=== PATIENT | female | born 1940 | race Caucasian/White ===

== ENCOUNTER 2022-03-03 11:00 | Outpatient (RCR) | payer MEDICARE, OTHER, SELFPAY | END 2022-03-09 15:18 | disposition home or self-care (01) | LOC: HO.PT 11:00 | PROVIDERS: PCP Internal Medicine; Visit Provider Colon & Rectal Surgery | DX: R15.1 Fecal smearing (principal) | CPT/HCPCS: 97112; 97140; 97161 ==

== ENCOUNTER 2023-04-21 13:00 | Inpatient (IN) | payer MEDICARE, OTHER, SELFPAY ==
--- NOTE | ~2023-04-21 | XR_ITS ---
EXAMINATION: XR CHEST CLINICAL INFORMATION: None provided. COMPARISON: None available. TECHNIQUE: Frontal view of the chest was obtained. FINDINGS: No significant abnormality is noted involving the heart, lungs, mediastinum, bony thorax or soft tissues. There is some minimal bibasilar atelectasis. Degenerative changes are seen in the spine. XR/XR chest 1V IMPRESSION: No acute intrathoracic disease.
--- NOTE | 2023-04-21 13:10 | ECG_ITS ---
Test Reason : SHORT OF BREATHE Blood Pressure : / mmHG Vent. Rate : 072 BPM Atrial Rate : 072 BPM P-R Int : 152 ms QRS Dur : 080 ms QT Int : 386 ms P-R-T Axes : 012 -10 062 degrees QTc Int : 422 ms Normal sinus rhythm Normal ECG No previous ECGs available Referred By: Cami Infante Electronically Signed By:ANDREA CRYSTAL MD
[2023-04-21 13:11] VITALS: BP 140/78; BP 150/74; PULSE 84; PULSE 90; RESP 20; TEMP 37.1; O2SAT 97; O2SAT 98; BMI 29.0
--- NOTE | 2023-04-21 13:11 | ED_ITS ---
HPI - SOB/Dyspnea General Chief Complaint: Upper Respiratory Symptoms Stated Complaint: SOB,RECENT COVID,DUONEB GIVEN PER EMS Time Seen by Provider: 04/21/23 13:04 Source: patient and EMS Mode of arrival: EMS Limitations: no limitations History of Present Illness HPI Narrative: Patient comes to the emergency room complaining of shortness of breath. Patient was out shopping at the mall, patient had sudden onset of shortness of breath. Patient states that she does not have any lung issues, no asthma/COPD. Ambulance was called . On their arrival, they noticed that patient had bilateral wheezing, so EMS gave the patient 1 dose of DuoNeb. Patient states that she started feeling well afterwards. On arrival to the ED, patient was saturating 96% on room air. Patient denies chest pain or dizziness. Patient states that 3 weeks ago she tested positive for COVID and since then she has had a dry cough, no fever chills or difficulty breathing. Related Data Allergies Allergy/AdvReac Type Severity Reaction Status Date / Time [id number] Reductase Allergy Mild rash Verified 04/21/23 13:10 Inhibitor Review of Systems 2 Review of Systems: Constitutional : No Weight loss, No Fever, No Chills, No Night Sweats, No Fatigue, No Malaise ENT/Mouth : No Hearing loss, No Ear Pain, No Nasal Congestion, No Sinus Pain, No Hoarseness, No sore throat, No Rhinorrhea, No Swallowing Difficulty Eyes: No Eye Pain, No Swelling, No Redness, No Foreign Body, No Discharge, No Vision Changes Cardiovascular : No Chest Pain, No SOB, No Dyspnea on Exertion, No Orthopnea, No Edema, No Palpitations Respiratory : Dry cough for 3+ weeks after COVID, shortness of breath today improving with DuoNeb Gastrointestinal : No Nausea, No Vomiting, No Diarrhea, No Constipation, No abdominal Pain, No Hematochezia, No Melena Genitourinary : no irregular bleeding, No Dysuria, No Urinary Frequency, No Hematuria, No Urinary Incontinence, No Urgency, No Flank Pain, No Urinary Flow Changes, No Hesitancy Musculoskeletal : No joint pain, No Myalgias, No Joint Swelling Skin : No Skin Lesions, No rash Neuro : No Weakness, No Numbness, No Paresthesias, No Loss of Consciousness, No Dizziness, No Headache Psych : No Anxiety/Panic, No Depression, No SI/HI/AH/VH, No Social Issues, Heme/Lymph: No Bruising, No Bleeding,No Lymphadenopathy Endocrine : No Polyuria, No Polydipsia, No Temperature Intolerance [facility] Past Medical History Medical History Non-STEMI (non-ST elevated myocardial infarction) Hyperlipidemia Hypertension Social History Social History Advance Directives: No Advance Directives Information Provided: Yes Physical Exam 2 Vital Signs: Vital Signs: Last Vital Signs Temp 98.7 F 04/21/23 13:11 Pulse 71 04/21/23 13:32 Resp 15 04/21/23 13:32 BP 138/63 04/21/23 13:32 Pulse Ox 97 04/21/23 13:11 O2 Del Method Room Air 04/21/23 13:32 BMI result Body Mass Index 29.0 Const: Other: Appearance: Alert. Oriented X3. No acute distress. Eyes: Pupils equal, round and reactive to light. ENT: Pharynx normal. Neck: Normal inspection. Neck supple. No lymph nodes noted. No crepitus CVS: Normal heart rate and rhythm. Pulses normal. Normal S1 and S2 Respiratory: No respiratory distress. No wheezing, bilateral friction rub with inspiration Abdomen: Soft and nontender. No rigidity. No distention. Skin: Skin warm and dry. Normal skin color. Normal skin turgor. Extremities: No lower extremity edema. No Lacerations. No Rash Neuro: Oriented X 3. No motor deficit. No sensory deficit. Moving all extremities. No slurred speech. CN 2 through 12 grossly intact Psych: calm, cooperative, normal affect Course Course Course Narrative: -patient's vitals stable, oxygen saturation 97% on room air -patient's labs and imaging pending Medical Decision Making Medical Decision Making MDM Narrative: -my interpretation of labs: White blood cell count 12.7, likely reactive leukocytosis. Normal blood gases, normal chemistry, BNP 122 with no signs of edema. Serology was positive for COVID, patient has had COVID for 2 weeks. -my interpretation of chest x-ray, no pneumonia -I discussed with the patient and her family that she has been coughing for 3 weeks, likely having bronchitis. It is possible that she was in fact wheezing and the albuterol that she was given in the ambulance make her feel back to baseline. At this time, patient states that she feels completely normal. No chest pain or shortness of breath, no wheezing. Discharged with albuterol p.r.n. wheezing. -patient was walked around the emergency room, patient's oxygen saturation dropped to 80%, patient started wheezing again -patient receiving Decadron, magnesium and another breathing treatment. Discussed with the patient that unfortunately we cannot safely discharge her, patient and family agree with plan, she will be admitted. -discussed the patient with Dr. Olivier from the medicine team, patient being admitted Differential Diagnosis Differential Diagnoses: The differential diagnosis associated with the presentation includes (Asthma, bronchitis, pneumonia, COVID, influenza, RSV) Admission/Observation Consideration of admission/observation: Escalation of care including admission/observation considered Consult Healthcare Provider Management of the patient was discussed with: Hospitalist Lab Data MDM Lab Attestation statement: I reviewed the patient's lab results. 04/21/23 13:59 04/21/23 13:59 Labs: Lab Results 04/21/23 04/21/23 Range/Units 13:59 14:05 WBC 12.7 H (4.8-10.8) X10*3/uL RBC 4.17 L (4.20-5.50) X10*6/uL Hgb 12.9 (12.0-16.0) g/dl Hct 38.0 (37.0-47.0) % MCV 91.1 (80.0-98.0) fL MCH 30.9 (27.0-33.0) pg MCHC 33.9 (31.0-35.0) g/dl RDW 13.4 (11.0-16.0) % Plt Count 252 (160-400) X10*3/uL MPV 9.9 (9.4-12.3) fL Immature Gran % (Auto) 0.3 (0.0-0.4) % Neut % (Auto) 85.8 H (45-73) % Lymph % (Auto) 5.7 L (20-40) % [place] % (Auto) 4.3 (2-11) % Eos % (Auto) 3.3 (0-4) % Baso % (Auto) 0.6 (0-2) % Lymph # (Auto) 0.7 L (1.2-4.9) X10*3/uL [place] # (Auto) 0.6 (0.1-1.2) X10*3/uL Eos # (Auto) 0.4 (0.0-0.4) X10*3/uL Baso # (Auto) 0.1 (0.0-0.2) X10*3/uL Abs Immat Gran (auto) 0.04 H (0.00-0.03) X10*3/uL Absolute Neuts (auto) 10.9 H (2.0-8.3) x10*3/uL Absolute Nucleated RBC 0.000 (0.0-0.012) X10*3/uL Nucleated RBC % (auto) 0.0 (0.0-0.2) /100WBC PT 11.0 L (11.1-13.3) SEC INR 0.9 (0.9-1.1) VBG pH 7.46 H (7.32-7.43) VBG pCO2 36 mmHg VBG pO2 44 mmHg VBG HCO3 25 (22-26) mmol/L VBG O2 Saturation 74.0 % VBG Base Excess 2.4 mmol/L Sodium 135 (135-145) mmol/L Potassium 4.1 (3.3-5.1) mmol/L Chloride 102 (96-108) mmol/L Carbon Dioxide 24 (22-29) mmol/L Anion Gap 13 (12-20) BUN 21 H (9-16) mg/dL Creatinine 0.68 (0.5-1.4) mg/dL Estim Creat Clear Calc 68.7 Estimated GFR > 60 Random Glucose 103 (60-115) mg/dL Lactic Acid 1.1 (0.5-2.0) mmol/L Calcium 9.6 (8.4-10.2) mg/dL Total Bilirubin 0.4 (0.0-1.0) mg/dL Direct Bilirubin 0.1 (0.0-0.5) mg/dL AST 29 (5-31) U/L ALT 16 (0-31) U/L Alkaline Phosphatase 81 (39-117) U/L Troponin I High Sens 3.2 (<3.5-17.0) ng/L B-Natriuretic Peptide 122 H (<100) pg/mL Total Protein 7.7 (6.5-8.0) g/dL Albumin 4.2 (3.5-5.0) g/dL Influenza Type A (PCR) NEGATIVE (Negative) Influenza Type B (PCR) NEGATIVE (Negative) RSV RNA Qual (PCR) NEGATIVE (Negative) SARS-CoV-2 RNA (RT-PCR) POSITIVE A (Negative) Independent Interpretation I performed an independent interpretation of an: EKG (My interpretation of EKG: Normal sinus rhythm, heart rate 72, no ST segment depression or elevation, no T- wave inversion, QTC 422) and Plain X-Ray Radiology Impression Discussion of test interpretation with radiology: I have reviewed the radiologist's reading. Radiologist Impression: FINDINGS: No significant abnormality is noted involving the heart, lungs, mediastinum, bony thorax or soft tissues. There is some minimal bibasilar atelectasis. Degenerative changes are seen in the spine. XR/XR chest 1V IMPRESSION: No acute intrathoracic disease. Independent Historian Clinical information obtained from an independent historian. History obtained from or confirmed by: Other (Patient's son) Critical Care Time Critical Care Time Critical Care Time: Yes Total Critical Care Time: 60 Attestation: I have personally provided critical care time. Time includes review of lab data, radiology results, discussion with consultants, and monitoring for potential decompensation. Intervention performed as documented. Discharge Plan Discharge Clinical Impression: COVID-19 Patient Disposition: Admitted As Inpatient
--- NOTE | 2023-04-21 13:21 | PC.NURSE ---
[place] [facility] [place] with complaints of shortness of breath while out walking her dog. Dx with COVID at the end of March. Took a full course of Paxlovid. States that she is fully vaccinated for RSV/COVID/Flu. VSS. RR even and unlabored bilaterally on RA. Plan for EKG, labs, CXR.
[2023-04-21 13:32] VITALS: BP 138/63; PULSE 71; RESP 15
[2023-04-21 14:07] LABS: MANUAL DIFF FLAG NO
[2023-04-21 14:10] LABS: Venous Blood Gas Refer to POC result
[2023-04-21 14:11] LABS: VBG Base Excess 2.4 mmol/L; VBG HCO3 25 mmol/L (22-26); VBG pCO2 36 mmHg; VBG pH 7.46 (7.32-7.43); VBG pO2 44 mmHg
[2023-04-21 14:14] LABS: Basophils Absolute Auto 0.1 X10*3/uL (0.0-0.2); Basophils Percent Auto 0.6 % (0-2); Eosinophils Absolute Auto 0.4 X10*3/uL (0.0-0.4); Eosinophils Percent Auto 3.3 % (0-4); Hemoglobin 12.9 g/dl (12.0-16.0); Imm Gran Abs Auto 0.04 X10*3/uL (0.00-0.03); Imm Gran Pct Auto 0.3 % (0.0-0.4); Lymphocytes Absolute Auto 0.7 X10*3/uL (1.2-4.9); Lymphocytes Percent Auto 5.7 % (20-40); Mean Corpuscular HGB Conc 33.9 g/dl (31.0-35.0); Mean Corpuscular Hemoglobin 30.9 pg (27.0-33.0); Mean Corpuscular Volume 91.1 fL (80.0-98.0); Mean Platelet Volume 9.9 fL (9.4-12.3); Monocytes Absolute Auto 0.6 X10*3/uL (0.1-1.2); Monocytes Percent Auto 4.3 % (2-11); Neutrophils Absolute Auto 10.9 x10*3/uL (2.0-8.3); Neutrophils Percent Auto 85.8 % (45-73); Platelet Count 252 X10*3/uL (160-400); Red Blood Count 4.17 X10*6/uL (4.20-5.50); Red Cell Distribution Width 13.4 % (11.0-16.0); White Blood Count 12.7 X10*3/uL (4.8-10.8)
[2023-04-21 14:16] LABS: INTERNATIONAL NORM RATIO 0.9 (0.9-1.1)
[2023-04-21 14:20] LABS: Lactic Acid 1.1 mmol/L (0.5-2.0)
[2023-04-21 14:26] LABS: Alanine Aminotransferase 16 U/L (0-31); Albumin Level 4.2 g/dL (3.5-5.0); Alkaline Phosphatase 81 U/L (39-117); Anion Gap 13 (12-20); Aspartate Amino Transferase 29 U/L (5-31); Bilirubin Direct 0.1 mg/dL (0.0-0.5); Bilirubin Total 0.4 mg/dL (0.0-1.0); Blood Urea Nitrogen 21 mg/dL (9-16); Calcium 9.6 mg/dL (8.4-10.2); Carbon Dioxide 24 mmol/L (22-29); Chloride 102 mmol/L (96-108); Creatinine Clr Calc Pharmacy 68.7; Estimated Glomerular Filt Rate > 60; Glucose Random 103 mg/dL (60-115); Potassium 4.1 mmol/L (3.3-5.1); Sodium 135 mmol/L (135-145); Total Protein 7.7 g/dL (6.5-8.0)
[2023-04-21 14:28] LABS: B Type Natriuretic Peptide 122 pg/mL (<100)
[2023-04-21 14:32] LABS: Troponin-I High Sensitivity 3.2 ng/L (<3.5-17.0)
[2023-04-21 14:52] LABS: Influenza A PCR NEGATIVE (Negative); Influenza B PCR NEGATIVE (Negative); Resp Syncy Virus RNA Qual PCR NEGATIVE (Negative); SARS COV2 PCR INHOUSE POSITIVE (Negative)
[2023-04-21] MEDS: Albuterol Sulfate (0.083%) 2.5 MG/3 ML VIAL.NEB 5 MG INHALE (16:32)
[2023-04-21 16:34] VITALS: PULSE 75; RESP 20; O2SAT 96
--- NOTE | 2023-04-21 16:45 | P.HPHOSP_ITS ---
History of Present Illness Date of Service: 04/21/23 Chief Complaint: sob 82F PMH [place]/CAD (no stents), TIA, htn, hypothyroid, hld, presented with sob. patient had covid about 3 weeks prior to presentation. was treated with paxlovid, noted some improvement, but continued to feel lethargic, sob, cough. on day of presentation [facility] and became significantly sob so came to ED. in ED patient still pcr positive for covid, cxr unremarkable, desaturating to 80s on exertion, not hypoxic at rest. Review of Systems 2 Review of Systems: Yes all other systems are reviewed and are negative [facility] Medical History Non-STEMI (non-ST elevated myocardial infarction) Hyperlipidemia Hypertension Social History Advance Directives: No Advance Directives Information Provided: Yes Meds Allergies Allergy/AdvReac Type Severity Reaction Status Date / Time [id number] Reductase Allergy Mild rash Verified 04/21/23 13:10 Inhibitor Active Medications: Current Medications Enoxaparin Sodium (Enoxaparin Sodium 40 Mg/0.4 Ml Syringe) 40 mg SUBCUT Q24H AMANDA Magnesium Sulfate/Dextrose (Magnesium Sulfate/D5w) 1 gm in 100 mls @ 100 mls/hr IV ONCE ONE Stop: 04/21/23 17:21 Sodium Chloride (0.9 % Sodium Chloride Flush 3 Ml Syringe) 3 ml IVFLUSH QSHIFT [facility] Home Medications Medication Instructions Recorded Confirmed Last Taken Type albuterol sulfate 90 mcg/actuation 2 puff inhalation Q6H PRN cough 04/21/23 04/21/23 Unknown History aerosol inhaler amlodipine 2.5 mg tablet 2.5 mg PO DAILY 04/21/23 04/21/23 04/21/23 History aspirin 81 mg chewable tablet 81 mg PO BEDTIME 04/21/23 04/21/23 04/20/23 History benzonatate 100 mg capsule 100 mg PO TID PRN cough 04/21/23 04/21/23 Unknown History coenzyme Q10 100 mg capsule 200 mg PO DAILY 04/21/23 04/21/23 04/21/23 History (CoQ-10) latanoprost 0.005 % eye drops 1 drp ophthalmic (eye) QPM 04/21/23 04/21/23 04/20/23 History levothyroxine 88 mcg tablet 88 mcg PO DAILY@0600 04/21/23 04/21/23 04/21/23 History magnesium 250 mg tablet 250 mg PO DAILY 04/21/23 04/21/23 04/21/23 History metoprolol succinate 25 mg 25 mg PO DAILY 04/21/23 04/21/23 04/21/23 History tablet,extended release 24 hr multivitamin 1 tab PO DAILY 04/21/23 04/21/23 04/21/23 History omega 0-vvt-avl-fish oil 1,000 mg 1 cap PO BEDTIME 04/21/23 04/21/23 04/20/23 History (120 mg-180 mg) capsule (Fish Oil) rosuvastatin 10 mg tablet 10 mg PO BEDTIME 04/21/23 04/21/23 04/20/23 History Physical Exam 2 Vital Signs and Narrative: Vital Signs: Last Vital Signs Temp 98.7 F 04/21/23 13:11 Pulse 75 04/21/23 16:34 Resp 20 04/21/23 16:34 BP 138/63 04/21/23 13:32 Pulse Ox 97 04/21/23 13:11 O2 Del Method Room Air 04/21/23 13:32 BMI result Body Mass Index 29.0 General: AO X 3, no acute distress Resp: diminished bilateral, no accessory muscles used CVS: S1,S2,RRR GI: soft, non tender, non distended Neuro: motor grossly intact, alert Psych: appropriate affect, appropriate insight Results Labs 04/21/23 13:59 04/21/23 13:59 Labs: Laboratory Results - last 24 hr 04/21/23 04/21/23 13:59 14:05 MCV 91.1 MCH 30.9 MCHC 33.9 RDW 13.4 Plt Count 252 MPV 9.9 Immature Gran % (Auto) 0.3 Neut % (Auto) 85.8 H Lymph % (Auto) 5.7 L [place] % (Auto) 4.3 Eos % (Auto) 3.3 Baso % (Auto) 0.6 Lymph # (Auto) 0.7 L [place] # (Auto) 0.6 Eos # (Auto) 0.4 Baso # (Auto) 0.1 Abs Immat Gran (auto) 0.04 H Absolute Neuts (auto) 10.9 H Absolute Nucleated RBC 0.000 Nucleated RBC % (auto) 0.0 PT 11.0 L INR 0.9 VBG pH 7.46 H VBG pCO2 36 VBG pO2 44 VBG HCO3 25 VBG O2 Saturation 74.0 VBG Base Excess 2.4 Anion Gap 13 Estim Creat Clear Calc 68.7 Estimated GFR > 60 Random Glucose 103 Lactic Acid 1.1 Calcium 9.6 Total Bilirubin 0.4 Direct Bilirubin 0.1 AST 29 ALT 16 Alkaline Phosphatase 81 B-Natriuretic Peptide 122 H Total Protein 7.7 Albumin 4.2 Influenza Type A (PCR) NEGATIVE Influenza Type B (PCR) NEGATIVE RSV RNA Qual (PCR) NEGATIVE SARS-CoV-2 RNA (RT-PCR) POSITIVE A Imaging Radiologist's Impressions: Impressions Chest X-Ray 04/21/23 14:05 IMPRESSION: No acute intrathoracic disease. Assessment and Plan (1) COVID-19: Status: Acute Plan 82F PMH [place] (no stents), TIA, htn, hypothyroid, hld, presented with sob acute hypoxic respiratory failure on ambulation due to recurrent covid 19 decadron, wean o2 as tolerated, duonebs prn htn amldoipine, metoprolol hld statin history of TIA/[place] asa, statin hypothyroid synthroid dvt prophylaxis - lovenox full code patient wiht hypoxia on ambulation due to covid, appears dyspneic at rest, suspect she will require atleast 2 midnights inpatient for close monitoring for further decompensation Quality Stroke Does the patient have a stroke diagnosis?: No VTE Prior VTE?: No VTE Risk Level:: Medical - moderate - high VTE Device Contraindication: Treatment Not Indicated VTE Drug Contraindication: N/A - Med Ordered
--- NOTE | 2023-04-21 17:04 | PHA.MEDREC ---
Pharmacy Consult ? Medication Reconciliation Pharmacy has completed the medication reconciliation. Patient had list of medication. Patient confirmed decrease in amlodipine and levothyroxine. Angelina Hubbard, PharmD
[2023-04-21 17:13] VITALS: BP 151/68; PULSE 92; RESP 31; O2SAT 94
[2023-04-21] MEDS: dexAMETHasone sod phosphate 4 MG/ML VIAL 6 MG IVPUSH (17:47)
[2023-04-21] MEDS: Magnesium Sulfate/D5W 1 GM/100 ML PIGGYBACK IV (17:47)
[2023-04-21] MEDS: Albuterol/Iprat 2.5/0.5MG 3 ML AMPUL.NEB INHALE (17:54)
--- NOTE | 2023-04-21 18:42 | PC.NURSE ---
Pt desaturated to low 80s during ambulation trial, IP admit - pending bed assignment. Currently A&Ox3, RR even and unlabored on RA. DuoNeb treatment provided for patient comfort. Food/beverages/pillow provided for comfort. Pt denies all other complaints at this time. Family member at bedside. Medicated per JUL.
[2023-04-21 19:46] VITALS: BMI 29.9
[2023-04-21] MEDS: Aspirin 81 MG TAB.CHEW PO (19:53)
[2023-04-21] MEDS: 0.9 % Sodium Chloride Flush 3 ML SYRINGE IVFLUSH (19:54)
[2023-04-21 20:00] VITALS: BP 145/67; PULSE 80; RESP 17; TEMP 36.8; O2SAT 94
[2023-04-21] MEDS: Latanoprost 0.005 % Ophth Sol 2.5 ML DROPS 1 DROP EYE-BOTH (21:19)
[2023-04-21] MEDS: Benzonatate 100 MG CAPSULE PO (22:10)
[2023-04-21] MEDS: ROSUVASTATIN 10 MG 10 EACH PO (22:30)
[2023-04-21 23:35] VITALS: BP 139/68; PULSE 71; TEMP 36.6; O2SAT 97
[2023-04-22] VITALS (7 sets, daily range): BP systolic 127–186; BP diastolic 75–84; PULSE 59–76; RESP 14–19; TEMP 36.3–37; O2SAT 97–99
[2023-04-22] MEDS: Levothyroxine Sodium 88 MCG TABLET PO (06:18)
[2023-04-22 08:12] LABS: Hemoglobin 11.2 g/dl (12.0-16.0); Mean Corpuscular HGB Conc 33.9 g/dl (31.0-35.0); Mean Corpuscular Hemoglobin 31.2 pg (27.0-33.0); Mean Corpuscular Volume 91.9 fL (80.0-98.0); Mean Platelet Volume 10.1 fL (9.4-12.3); Platelet Count 254 X10*3/uL (160-400); Red Blood Count 3.59 X10*6/uL (4.20-5.50); Red Cell Distribution Width 13.7 % (11.0-16.0); White Blood Count 11.4 X10*3/uL (4.8-10.8)
[2023-04-22 08:20] LABS: Anion Gap 12 (12-20); Blood Urea Nitrogen 21 mg/dL (9-16); Calcium 9.4 mg/dL (8.4-10.2); Carbon Dioxide 24 mmol/L (22-29); Chloride 101 mmol/L (96-108); Creatinine Clr Calc Pharmacy 65.8; Estimated Glomerular Filt Rate > 60; Glucose Fasting 136 mg/dL (60-99); Potassium 4.3 mmol/L (3.3-5.1); Sodium 133 mmol/L (135-145)
[2023-04-22] MEDS: Enoxaparin Sodium 40 MG/0.4 ML SYRINGE SUBCUT (08:45)
[2023-04-22] MEDS: dexAMETHasone sod phosphate 4 MG/ML VIAL 6 MG IVPUSH (08:46)
[2023-04-22] MEDS: amLODIPine Besylate 2.5 MG TABLET PO (08:47)
[2023-04-22] MEDS: 0.9 % Sodium Chloride Flush 3 ML SYRINGE IVFLUSH ×3 (08:47→19:49)
[2023-04-22] MEDS: Metoprolol Succinate ER 25 MG TAB.ER.24H PO (08:47)
[2023-04-22] MEDS: Multivitamin TABLET 1 TAB PO (08:47)
[2023-04-22] MEDS: Benzonatate 100 MG CAPSULE PO ×2 (08:47→17:21)
--- NOTE | 2023-04-22 08:48 | HO.PM.IMPN ---
Subjective Subjective Date of Service: 04/22/23 Interval History: mild improvement, pain with cough Physical Exam Vital Signs: Vital Signs: Last Vital Signs Temp 97.6 F 04/22/23 07:40 Pulse 59 04/22/23 07:40 Resp 16 04/22/23 07:40 BP 167/79 H 04/22/23 07:40 Pulse Ox 98 04/22/23 07:40 O2 Del Method Nasal Cannula 04/22/23 07:40 O2 Flow Rate 2 04/22/23 07:40 BMI result Body Mass Index 29.9 General: AO X 3, no acute distress Resp: dimished bilateral, no accessory muscles used CVS: S1,S2,RRR GI: soft, non tender, non distended Neuro: motor grossly intact, alert Psych: appropriate affect, appropriate insight Objective Data Active Medications Albuterol/Ipratropium (Albuterol/Iprat 2.5/0.5mg 3 Ml Ampul.Neb) 3 ml INHALE RQ4H WHILE AWAKE PRN PRN Reason: sob Last Admin: 04/21/23 17:54 Dose: 3 ml Documented By: GABBY Amlodipine Besylate (Amlodipine Besylate 2.5 Mg Tablet) 2.5 mg PO DAILY AMANDA; Protocol Last Admin: 04/22/23 08:47 Dose: 2.5 mg Documented By: YESSENIA Aspirin (Aspirin 81 Mg Tab.Chew) 81 mg PO BEDTIME [facility] Last Admin: 04/21/23 19:53 Dose: 81 mg Documented By: PHILLIP Benzonatate (Benzonatate 100 Mg Capsule) 100 mg PO TID PRN PRN Reason: cough Last Admin: 04/22/23 08:47 Dose: 100 mg Documented By: YESSENIA Dexamethasone Sodium Phosphate (Dexamethasone Sod Phosphate 4 Mg/Ml Vial) 6 mg IVPUSH DAILY [facility] Last Admin: 04/22/23 08:46 Dose: 6 mg Documented By: YESSENIA Enoxaparin Sodium (Enoxaparin Sodium 40 Mg/0.4 Ml Syringe) 40 mg SUBCUT Q24H [facility] Last Admin: 04/22/23 08:45 Dose: 40 mg Documented By: YESSENIA Latanoprost (Latanoprost 0.005 % Ophth Kavya 2.5 Ml Drops) 1 drop EYE-BOTH BEDTIME [facility] Last Admin: 04/21/23 21:19 Dose: 1 drop Documented By: PHILLIP Levothyroxine Sodium (Levothyroxine Sodium 88 Mcg Tablet) 88 mcg PO DAILY@0600 [facility] Last Admin: 04/22/23 06:18 Dose: 88 mcg Documented By: MARCK Metoprolol Succinate (Metoprolol Succinate Er 25 Mg Tab.Er.24h) 25 mg PO DAILY [facility]; Protocol Last Admin: 04/22/23 08:47 Dose: 25 mg Documented By: YESSENIA Multivitamins/Vitamin C (Multivitamin Tablet) 1 tab PO DAILY [facility] Last Admin: 04/22/23 08:47 Dose: 1 tab Documented By: YESSENIA Pt Own (Rosuvastatin (10 Mg)) 10 mg PO BEDTIME [facility] Last Admin: 04/21/23 22:30 Dose: 10 mg Documented By: PHILLIP Comments: waiting for home med to be labelled by pharmacy Sodium Chloride (0.9 % Sodium Chloride Flush 3 Ml Syringe) 3 ml IVFLUSH QSHIFT [facility] Last Admin: 04/22/23 08:47 Dose: 3 ml Documented By: YESSENIA Labs 04/22/23 07:41 04/22/23 07:41 Labs: Laboratory Results - last 24 hr 04/21/23 04/21/23 04/22/23 13:59 14:05 07:41 MCV 91.1 91.9 MCH 30.9 31.2 MCHC 33.9 33.9 RDW 13.4 13.7 Plt Count 252 254 MPV 9.9 10.1 Immature Gran % (Auto) 0.3 Neut % (Auto) 85.8 H Lymph % (Auto) 5.7 L [place] % (Auto) 4.3 Eos % (Auto) 3.3 Baso % (Auto) 0.6 Lymph # (Auto) 0.7 L [place] # (Auto) 0.6 Eos # (Auto) 0.4 Baso # (Auto) 0.1 Abs Immat Gran (auto) 0.04 H Absolute Neuts (auto) 10.9 H Absolute Nucleated RBC 0.000 0.000 Nucleated RBC % (auto) 0.0 0.0 PT 11.0 L INR 0.9 VBG pH 7.46 H VBG pCO2 36 VBG pO2 44 VBG HCO3 25 VBG O2 Saturation 74.0 VBG Base Excess 2.4 Anion Gap 13 12 Estim Creat Clear Calc 68.7 65.8 Estimated GFR > 60 > 60 Random Glucose 103 Fasting Glucose 136 H Lactic Acid 1.1 Calcium 9.6 9.4 Total Bilirubin 0.4 Direct Bilirubin 0.1 AST 29 ALT 16 Alkaline Phosphatase 81 B-Natriuretic Peptide 122 H Total Protein 7.7 Albumin 4.2 Influenza Type A (PCR) NEGATIVE Influenza Type B (PCR) NEGATIVE RSV RNA Qual (PCR) NEGATIVE SARS-CoV-2 RNA (RT-PCR) POSITIVE A Assessment and Plan (1) COVID-19: Status: Acute Plan 82F PMH [place]/CAD (no stents), TIA, htn, hypothyroid, hld, presented with sob acute hypoxic respiratory failure on ambulation due to recurrent covid 19 cotninue decadron, wean o2 as tolerated, duonebs prn htn amldoipine, metoprolol hld statin history of TIA/[place] asa, statin hypothyroid synthroid dvt prophylaxis - lovenox full code reason for continued hospitalization:still needing o2 supplement Quality Stroke Does the patient have a stroke diagnosis?: No VTE Prior VTE?: No VTE Risk Level:: Medical - moderate - high VTE Device Contraindication: Treatment Not Indicated VTE Drug Contraindication: N/A - Med Ordered
--- NOTE | 2023-04-22 09:36 | MHC.CM.PN ---
IMM 04/22/23, Pt. lives alone, she does not have home health services, for med equipment, she has a cane that she uses occasionally. She has been to [facility] in the past and used home PT, she does not recall which agency. Family will transport home upon DC. VAHID aRder is HCP, CM to obtain document from BS PCP office: Dr. Ree De La Vega in [facility]. CM to follow and assist with DC planning.
[2023-04-22] MEDS: Aspirin 81 MG TAB.CHEW PO (19:49)
[2023-04-22] MEDS: Latanoprost 0.005 % Ophth Sol 2.5 ML DROPS 1 DROP EYE-BOTH (19:49)
[2023-04-22] MEDS: ROSUVASTATIN 10 MG 10 EACH PO (19:51)
[2023-04-23 03:38] VITALS: BP 122/71; PULSE 56; RESP 17; TEMP 36.1; O2SAT 98
[2023-04-23] MEDS: Benzonatate 100 MG CAPSULE PO ×3 (05:16→22:32)
[2023-04-23] MEDS: Levothyroxine Sodium 88 MCG TABLET PO (05:17)
[2023-04-23 07:11] VITALS: BP 144/70; PULSE 56; RESP 18; TEMP 36.4; O2SAT 98
[2023-04-23 07:17] VITALS: BP 144/70; PULSE 52; RESP 18; TEMP 36.4; O2SAT 98
[2023-04-23 08:25] LABS: Hematocrit 34.7 % (37.0-47.0); Hemoglobin 11.6 g/dl (12.0-16.0); Mean Corpuscular HGB Conc 33.4 g/dl (31.0-35.0); Mean Corpuscular Hemoglobin 30.5 pg (27.0-33.0); Mean Corpuscular Volume 91.3 fL (80.0-98.0); Mean Platelet Volume 9.9 fL (9.4-12.3); Platelet Count 252 X10*3/uL (160-400); Red Cell Distribution Width 13.6 % (11.0-16.0); White Blood Count 19.1 X10*3/uL (4.8-10.8)
[2023-04-23 08:41] LABS: Anion Gap 8 (12-20); Blood Urea Nitrogen 18 mg/dL (9-16); C Reactive Protein 0.71 mg/dL (< or = 0.50); Calcium 9.5 mg/dL (8.4-10.2); Carbon Dioxide 28 mmol/L (22-29); Chloride 101 mmol/L (96-108); Estimated Glomerular Filt Rate > 60; Glucose Fasting 100 mg/dL (60-99); Potassium 4.4 mmol/L (3.3-5.1); Sodium 133 mmol/L (135-145)
[2023-04-23] MEDS: amLODIPine Besylate 2.5 MG TABLET PO (08:53)
[2023-04-23] MEDS: Metoprolol Succinate ER 25 MG TAB.ER.24H PO (08:53)
[2023-04-23] MEDS: Multivitamin TABLET 1 TAB PO (08:53)
[2023-04-23] MEDS: 0.9 % Sodium Chloride Flush 3 ML SYRINGE IVFLUSH ×3 (08:54→22:44)
[2023-04-23] MEDS: dexAMETHasone sod phosphate 4 MG/ML VIAL 6 MG IVPUSH (08:54)
[2023-04-23] MEDS: Enoxaparin Sodium 40 MG/0.4 ML SYRINGE SUBCUT (08:54)
--- NOTE | 2023-04-23 10:12 | HO.PM.IMPN ---
Subjective Subjective Date of Service: 04/23/23 Interval History: sob improved at rest, but dyspneic and hypoxic on minimal ambulation Physical Exam Vital Signs: Vital Signs: Last Vital Signs Temp 97.5 F 04/23/23 07:17 Pulse 52 04/23/23 07:17 Resp 18 04/23/23 07:17 BP 144/70 H 04/23/23 07:17 Pulse Ox 98 04/23/23 07:17 O2 Del Method Nasal Cannula 04/23/23 07:17 O2 Flow Rate 1 04/23/23 03:38 BMI result Body Mass Index 29.9 General: AO X 3, no acute distress Resp: CTA bilateral, no accessory muscles used CVS: S1,S2,RRR GI: soft, non tender, non distended Neuro: motor grossly intact, alert Psych: appropriate affect, appropriate insight Objective Data Active Medications Albuterol/Ipratropium (Albuterol/Iprat 2.5/0.5mg 3 Ml Ampul.Neb) 3 ml INHALE RQ4H WHILE AWAKE PRN PRN Reason: sob Last Admin: 04/21/23 17:54 Dose: 3 ml Documented By: GABBY Amlodipine Besylate (Amlodipine Besylate 2.5 Mg Tablet) 2.5 mg PO DAILY AMANDA; Protocol Last Admin: 04/23/23 08:53 Dose: 2.5 mg Documented By: NINO Aspirin (Aspirin 81 Mg Tab.Chew) 81 mg PO BEDTIME AMANDA Last Admin: 04/22/23 19:49 Dose: 81 mg Documented By: CATHLEEN Benzonatate (Benzonatate 100 Mg Capsule) 100 mg PO TID PRN PRN Reason: cough Last Admin: 04/23/23 05:16 Dose: 100 mg Documented By: CATHLEEN Dexamethasone Sodium Phosphate (Dexamethasone Sod Phosphate 4 Mg/Ml Vial) 6 mg IVPUSH DAILY [facility] Last Admin: 04/23/23 08:54 Dose: 6 mg Documented By: NINO Enoxaparin Sodium (Enoxaparin Sodium 40 Mg/0.4 Ml Syringe) 40 mg SUBCUT Q24H [facility] Last Admin: 04/23/23 08:54 Dose: 40 mg Documented By: NINO Latanoprost (Latanoprost 0.005 % Ophth Kavya 2.5 Ml Drops) 1 drop EYE-BOTH BEDTIME [facility] Last Admin: 04/22/23 19:49 Dose: 1 drop Documented By: CATHLEEN Levothyroxine Sodium (Levothyroxine Sodium 88 Mcg Tablet) 88 mcg PO DAILY@0600 [facility] Last Admin: 04/23/23 05:17 Dose: 88 mcg Documented By: CATHLEEN Metoprolol Succinate (Metoprolol Succinate Er 25 Mg Tab.Er.24h) 25 mg PO DAILY [facility]; Protocol Last Admin: 04/23/23 08:53 Dose: 25 mg Documented By: NINO Multivitamins/Vitamin C (Multivitamin Tablet) 1 tab PO DAILY [facility] Last Admin: 04/23/23 08:53 Dose: 1 tab Documented By: NINO Pt Own (Rosuvastatin (10 Mg)) 10 mg PO BEDTIME [facility] Last Admin: 04/22/23 19:51 Dose: 10 mg Documented By: CATHLEEN Sodium Chloride (0.9 % Sodium Chloride Flush 3 Ml Syringe) 3 ml IVFLUSH QSHIFT [facility] Last Admin: 04/23/23 08:54 Dose: 3 ml Documented By: NINO Labs 04/23/23 08:01 04/23/23 08:01 Labs: Laboratory Results - last 24 hr 04/23/23 08:01 MCV 91.3 MCH 30.5 MCHC 33.4 RDW 13.6 Plt Count 252 MPV 9.9 Absolute Nucleated RBC 0.000 Nucleated RBC % (auto) 0.0 Anion Gap 8 L Estim Creat Clear Calc 74.0 Estimated GFR > 60 Fasting Glucose 100 H Calcium 9.5 C-Reactive Protein 0.71 H Microbiology Microbiology Results: Microbiology 04/21/23 14:16 Blood Culture - Preliminary Blood - Venous No growth after 24 hours. 04/21/23 13:59 Blood Culture - Preliminary Blood - Venous No growth after 24 hours. Assessment and Plan (1) COVID-19: Status: Acute Plan 82F PMH KS/CAD (no stents), TIA, htn, hypothyroid, hld, presented with sob acute hypoxic respiratory failure on ambulation due to recurrent covid 19 cotninue decadron, duonebs prn, continues to desaturate on minimal exertion htn amlodipine, metoprolol hld statin history of TIA/KS asa, statin hypothyroid synthroid dvt prophylaxis - lovenox full code reason for continued hospitalization:still needing o2 supplement on minimal exertion Quality Stroke Does the patient have a stroke diagnosis?: No VTE Prior VTE?: No VTE Risk Level:: Medical - moderate - high VTE Device Contraindication: Treatment Not Indicated VTE Drug Contraindication: N/A - Med Ordered
[2023-04-23] MEDS: guaiFENesin 200 MG/10 ML 10 ML LIQUID PO ×2 (10:53→22:32)
[2023-04-23 15:11] VITALS: BP 148/72; PULSE 58; RESP 18; TEMP 36.6; O2SAT 98
[2023-04-23 15:17] VITALS: BP 148/72; PULSE 61; RESP 18; TEMP 36.6; O2SAT 98
--- NOTE | 2023-04-23 15:43 | MHC.CM.PN ---
EMR reviewed and per MD rounds, pt is not medically cleared for D/C due to requiring supplemental O2 on minimal exertion. Anticipating pt will D/C over the weekend. CM will continue to follow.
[2023-04-23 19:29] VITALS: BP 155/74; PULSE 61; RESP 18; TEMP 36.6; O2SAT 96
[2023-04-23] MEDS: Latanoprost 0.005 % Ophth Sol 2.5 ML DROPS 1 DROP EYE-BOTH (22:31)
[2023-04-23] MEDS: Aspirin 81 MG TAB.CHEW PO (22:32)
[2023-04-23] MEDS: ROSUVASTATIN 10 MG 10 EACH PO (22:41)
[2023-04-24] VITALS: BP 147/78; PULSE 56; RESP 20; TEMP 36.1; O2SAT 98
[2023-04-24] MEDS: Albuterol/Iprat 2.5/0.5MG 3 ML AMPUL.NEB INHALE (02:12)
[2023-04-24 02:14] VITALS: PULSE 56; RESP 20; O2SAT 98
[2023-04-24 03:58] VITALS: BP 146/78; PULSE 58; RESP 20; TEMP 36.1; O2SAT 97
[2023-04-24] MEDS: Levothyroxine Sodium 88 MCG TABLET PO (06:51)
[2023-04-24 07:21] VITALS: BP 166/83; PULSE 54; RESP 16; TEMP 36.6; O2SAT 96
[2023-04-24] MEDS: Benzonatate 100 MG CAPSULE PO (08:18)
[2023-04-24] MEDS: Metoprolol Succinate ER 25 MG TAB.ER.24H PO (08:18)
[2023-04-24] MEDS: 0.9 % Sodium Chloride Flush 3 ML SYRINGE IVFLUSH (08:18)
[2023-04-24] MEDS: amLODIPine Besylate 2.5 MG TABLET PO (08:18)
[2023-04-24] MEDS: Enoxaparin Sodium 40 MG/0.4 ML SYRINGE SUBCUT (08:18)
[2023-04-24] MEDS: Multivitamin TABLET 1 TAB PO (08:18)
[2023-04-24] MEDS: dexAMETHasone sod phosphate 4 MG/ML VIAL 6 MG IVPUSH (08:19)
[2023-04-24 09:02] VITALS: PULSE 51; PULSE 68; O2SAT 95; O2SAT 97
--- NOTE | 2023-04-24 09:31 | PM.DS ---
DS: Providers Provider Date of Service: 04/24/23 Date of admission: 04/21/23 16:44 Primary care physician: Jennifer De La Vega MD DS: Diagnosis Discharge Diagnosis (1) COVID-19: Status: Acute DS: Summary Hospital Course Hospital Course: from initial hpi: 82F PMH PR/CAD (no stents), TIA, htn, hypothyroid, hld, presented with sob. patient had covid about 3 weeks prior to presentation. was treated with paxlovid, noted some improvement, but continued to feel lethargic, sob, cough. on day of presentation decided to go to [facility] and became significantly sob so came to ED. in ED patient still pcr positive for covid, cxr unremarkable, desaturating to 80s on exertion, not hypoxic at rest. hospital course: Patient was admitted for acute hypoxic respiratory failure secondary to recurrent COVID 19. Was treated with IV Decadron, bronchodilators. Symptoms significantly improved over the next few days and patient was evaluated for home oxygen but did not require. She will be discharged on 5 more days of prednisone. For hypertension was continue on amlodipine and metoprolol. For hyperlipidemia was continue on statin. For history of TIA/mi was continue on aspirin statin. For hypothyroidism was continue on Synthroid. Time Attestation Discharge coordination time: Greater than 30 minutes Quality: Safe Use of Opioids Does Pt have an Active Cancer Diagnosis on the Problem List?: No Quality: Stroke Does the patient have a stroke diagnosis?: No Physical Exam Vital Signs: Vital Signs: Last Vital Signs Temp 97.8 F 04/24/23 07:21 Pulse 54 04/24/23 07:21 Resp 16 04/24/23 07:21 BP 166/83 H 04/24/23 07:21 Pulse Ox 96 04/24/23 07:21 O2 Del Method Room Air 04/24/23 07:21 O2 Flow Rate 1 04/24/23 03:58 BMI result Body Mass Index 29.9 General: AO X 3, no acute distress Resp: CTA bilateral, no accessory muscles used CVS: S1,S2,RRR GI: soft, non tender, non distended Neuro: motor grossly intact, alert Psych: appropriate affect, appropriate insight DS: Data Data Completed and Pending Labs on day of discharge: Preliminary micro results at discharge 04/21/23 14:16 Blood Culture - Preliminary Blood - Venous No growth after 48 hours. 12/20/23 13:59 Blood Culture - Preliminary Blood - Venous No growth after 48 hours. Discharge Plan Discharge Anticipated Discharge Date/Time: 04/24/23 09:29 Patient Disposition: Home, Self-Care Discharge Diagnosis: covid Referrals: Jennifer De La Vega MD [Primary Care Provider] - 1 Week Discharge Medications: New prednisone 20 mg tablet 40 mg PO DAILY Qty: 10 0RF (DME) Space Chamber Spacer See Rx Instructions .Route Qty: 1 0RF Rx Instructions: As directed Continued latanoprost 0.005 % drops 1 drp ophthalmic (eye) QPM amlodipine 2.5 mg tablet 2.5 mg PO DAILY levothyroxine 88 mcg tablet 88 mcg PO DAILY@0600 benzonatate 100 mg capsule 100 mg PO TID PRN (Reason: cough) metoprolol succinate 25 mg tablet extended release 24 hr 25 mg PO DAILY albuterol sulfate 90 mcg/actuation HFA aerosol inhaler 2 puff inhalation Q6H PRN (Reason: cough) rosuvastatin 10 mg tablet 10 mg PO BEDTIME multivitamin Tablet 1 tab PO DAILY aspirin 81 mg Tablet,Chewable 81 mg PO BEDTIME magnesium 250 mg Tablet 250 mg PO DAILY coenzyme Q10 [CoQ-10] 100 mg Capsule 200 mg PO DAILY omega [id number] oil [Fish Oil] 1,000 mg (120 mg-180 mg) Capsule 1 cap PO BEDTIME Discharge Orders: Discharge Order (Routine); Ordered 04/24/23 Ordered By: Jonathan Meier Diet: Advance to usual diet Activity on Discharge: As tolerated Stand Alone Forms: Patient Portal Discharge page Care Plan Goals: recovery Health Concerns: covid Plan of Treatment: 5 more days of prednisone Assessment: see above Discharge Date/Time: 04/24/23 11:10
--- NOTE | 2023-04-24 09:58 | MHC.CM.PN ---
PT CLEARED TO DC HOME TODAY WITH NO SERVICES FAMILY TO TRANSPORT
== END 2023-04-24 11:10 | disposition home or self-care (01) | DRG 177 ==
LOC: HO.ED 16:33 → HO.EDOVER 16:54 → HO.S3 17:24 → HO.EDOVER 17:27 → HO.IMC 18:31
PROVIDERS: Admitting Provider Internal Medicine; Emergency Provider Emergency Medicine; PCP Internal Medicine; Visit Provider Internal Medicine
DX: U07.1 COVID-19 (principal); J96.01 Acute respiratory failure with hypoxia; E03.9 Hypothyroidism, unspecified; E78.5 Hyperlipidemia, unspecified; I10 Essential (primary) hypertension; I25.10 Atherosclerotic heart disease of native coronary artery without angina pectoris; Z86.73 Personal history of transient ischemic attack (TIA), and cerebral infarction without residual deficits; Z79.82 Long term (current) use of aspirin; Z79.890 Hormone replacement therapy; Z79.899 Other long term (current) drug therapy
CPT/HCPCS: 0241U; 36415; 71045; 80048; 80076; 82803; 83605; 83880; 84484; 85025; 85027; 85610; 86140; 87040; 93005; 94640; 99285; J1100; J1650; J3475

== ENCOUNTER → 2023-04-21 13:10 | Outpatient (BNV) | payer MEDICARE, OTHER, SELFPAY | PROVIDERS: Admitting Provider Internal Medicine; Emergency Provider Emergency Medicine; Visit Provider Internal Medicine Cardiovascular Disease | DX: R06.02 Shortness of breath (principal) | CPT/HCPCS: 93010 ==

== ENCOUNTER → 2023-04-21 16:44 | Outpatient (BNV) | payer MEDICARE, OTHER, SELFPAY | PROVIDERS: Admitting Provider Internal Medicine; Emergency Provider Emergency Medicine; Visit Provider Internal Medicine | DX: U07.1 COVID-19 (principal) | CPT/HCPCS: 99223; 99232; 99239 ==